=== PATIENT | female | born 1935 | race Caucasian/White ===

== ENCOUNTER 2017-05-27 10:12 | Emergency (ER) | payer MEDICARE, OTHER ==
[2017-05-27 10:32] VITALS: BP 108/52
[2017-05-27] MEDS ORDERED: Take Home: Ciprofloxacin 500 MG Tab, 2 Tab Pack PO ONE (11:55)
--- NOTE | 2017-05-27 12:46 | EDM.PDOC ---
ED HPI GENERAL MEDICAL PROBLEM - General Chief Complaint: Head Injury Stated Complaint: ER Time Seen by Provider: 05/27/17 10:32 Source of Information: Reports: Patient History Limitations: Reports: No Limitations - History of Present Illness INITIAL COMMENTS - FREE TEXT/NARRATIVE: Pt. presents to ER post fall. She was walking into the elevator at [facility] and suffered a fall, striking her head and face. She denied any LOC and recalls the entire event. Denies any neck pain. She states that she did not experience any weakness, chest pain, or shortness of breath prior to or during the fall. Staff at [facility] states that the pt. has been somewhat more fatigued recently, and state that she has a history of frequent UTIs. Onset: Today Location: Reports: Head, Face - Related Data Allergies Allergy/AdvReac Type Severity Reaction Status Date / Time No Known Allergies Allergy Verified 05/27/17 10:32 Home Meds: Home Meds Calcium Carb & Citrate/Vit D3 [Citracal + D ER] 2 tab PO DAILY 06/10/15 [History ] Cyanocobalamin (Vitamin B-12) [Vitamin B-12] 1 tab PO DAILY 06/10/15 [History] Docusate Sodium [Colace] 2 cap PO BEDTIME 06/10/15 [History] Donepezil HCl [Aricept] 10 mg PO DAILY 06/10/15 [History] Dorzolamide/Timolol [Cosopt 2%-0.5% Ophth Soln] 1 drop EYEBOTH BID 06/10/15 [ History] Lovastatin [Mevacor] 1 tab PO DAILY 06/10/15 [History] Sertraline HCl [Zoloft] 1 tab PO DAILY 06/10/15 [History] traZODone 0.5 - 1 tab PO BEDTIME PRN 06/10/15 [History] Acetaminophen [Tylenol] 650 mg PO Q4HR PRN 05/27/17 [History] Acyclovir [Zovirax] 400 mg PO BID 05/27/17 [History] Brimonidine [Alphagan P 0.15% Ophth Soln] 1 drop EYEBOTH BID 05/27/17 [History] Latanoprost [Latanoprost] 1 drop EYEBOTH BEDTIME 05/27/17 [History] Omeprazole [Omeprazole] 20 mg PO DAILY 05/27/17 [History] Sulfamethoxazole/Trimethoprim [Bactrim Ds Tablet] 1 tab PO MOWEFR 05/27/17 [ History] Past Medical History HEENT History: Reports: Cataract, Glaucoma Cardiovascular History: Reports: High Cholesterol, Other (See Below) Other Cardiovascular History: paroxysmal vent tachy Respiratory History: Reports: PE Gastrointestinal History: Reports: Chronic Constipation, Colon Polyp Musculoskeletal History: Reports: None Neurological History: Reports: Other (See Below) Other Neuro History: cognitive impairment Psychiatric History: Reports: Depression, Other (See Below) Other Psychiatric History: insomnia Endocrine/Metabolic History: Reports: Osteopenia Hematologic History: Reports: None Immunologic History: Reports: None Oncologic (Cancer) History: Reports: Non-Hodgkin's Lymphoma Dermatologic History: Reports: Other (See Below) Other Dermatologic History: scalp cysts - Past Surgical History Female Surgical History: Reports: Hysterectomy Social & Family History - Tobacco Use Smoking Status *Q: Never Smoker - Alcohol Use Days Per Week of Alcohol Use: 0 - Recreational Drug Use Recreational Drug Use: No Drug Use in Last 12 Months: No ED ROS GENERAL - Review of Systems Review Of Systems: See Below Constitutional: Reports: No Symptoms HEENT: Reports: Other (head/facial contusions/abrasions) Respiratory: Reports: No Symptoms Cardiovascular: Reports: No Symptoms Endocrine: Reports: No Symptoms GI/Abdominal: Reports: No Symptoms : Reports: No Symptoms Musculoskeletal: Reports: No Symptoms Skin: Reports: No Symptoms Neurological: Reports: Headache Psychiatric: Reports: No Symptoms Hematologic/Lymphatic: Reports: No Symptoms Immunologic: Reports: No Symptoms ED EXAM, HEAD INJURY - Physical Exam Exam: See Below Exam Limited By: No Limitations General Appearance: Alert, WD/WN, No Apparent Distress Head: Scalp Abrasions, Facial Abrasions, Facial Ecchymosis Eyes: Bilateral Eye: EOMI, Normal Fundi, Normal Inspection, PERRL Ears: Normal External Exam, Normal Canal, Hearing Grossly Normal, Normal TMs Nose: Normal Inspection, Normal Mucousa, No Blood Throat/Mouth: Normal Inspection, Normal Lips, Normal Teeth, Normal Gums, Normal Oropharynx, Normal Voice, No Airway Compromise Neck: Non-Tender, Full Range of Motion, Normal Alignment, Normal Inspection Respiratory: No Respiratory Distress, Lungs Clear, Normal Breath Sounds, No Accessory Muscle Use, Chest Non-Tender Cardiovascular: Normal Peripheral Pulses, Regular Rate, Rhythm, No Edema, No Gallop, No JVD, No Murmur, No Rub GI/Abdominal Exam: Normal Bowel Sounds, Soft, Non-Tender, No Organomegaly, No Distention, No Abnormal Bruit, No Mass (Female) Exam: Deferred Rectal (Female) Exam: Deferred Back Exam: Full Range of Motion, Normal Inspection, NT Extremities: Normal Inspection, Normal Range of Motion, Non-Tender, No Pedal Edema, Normal Capillary Refill Neurologic: mason liner II-XII nml As Tested, No Motor/Sensory Deficits, Alert, Normal Mood/Affect, Oriented x 3 DTR: 2+: Bicep (R), Bicep (L), Patella (R), Patella (L) Skin: Normal Color, Warm/Dry - [place] Coma Score Best Eye Response (Ramona): (4) Open Spontaneously Best Verbal Response ([place]): (5) Oriented Best Motor Response ([place]): (6) Obeys Commands [place] Total: 15 Course - Vital Signs Text/Narrative:: CT brain and facial bones negative for acute pathology Last Recorded V/S: Last Vital Signs Temp 35.9 C 05/27/17 10:27 Pulse 62 05/27/17 10:27 Resp 14 05/27/17 10:27 BP 108/52 L 05/27/17 10:27 Pulse Ox 94 L 05/27/17 10:27 - Orders/Labs/Meds Orders: Active Orders 24 hr Category Date Time Status Head wo Cont [CT] Stat Exams 05/27/17 10:37 Taken Max Facial Sinus wo Cont [CT] Stat Exams 05/27/17 10:38 Taken Labs: Laboratory Tests 05/27/17 Range/Units 11:29 Urine Color Yellow (YELLOW) Urine Appearance Slightly cloudy H (CLEAR) Urine pH 7.0 (5.0-8.0) Ur Specific [place] 1.020 Urine Protein Trace H (NEGATIVE) mg/dL Urine Glucose (UA) Negative (NEGATIVE) mg/dL Urine Ketones Negative (NEGATIVE) mg/dL Urine Occult Blood Negative (NEGATIVE) Urine Nitrite Negative (NEGATIVE) Urine Bilirubin Negative (NEGATIVE) Urine Urobilinogen 0.2 (0.2) EU/dL Ur Leukocyte Esterase Moderate H (NEGATIVE) Urine RBC 0-5 (NOT SEEN) /HPF Urine WBC 5-10 H (NOT SEEN) /HPF Ur Squamous Epith Cells Many H (NEGATIVE) /HPF Urine Bacteria Rare (NEGATIVE) /HPF Urine Mucus Rare H (NEGATIVE) /LPF Meds: Medications Discontinued Medications Generic Name Dose Route Start Last Admin Trade Name Alma Delia PRN Reason Stop Dose Admin Ciprofloxacin 1 packet 05/27/17 11:55 05/27/17 12:02 Take Home: Ciprofloxacin 500 Mg, 2 Tab Pack PO 05/27/17 11:56 1 packet ONETIME ONE Administration Departure - Departure Time of Disposition: 12:43 Disposition: Home, Self-Care 01 Condition: Good Clinical Impression: Concussion injury of brain, Abrasion head - Discharge Information Instructions: Head Injury, Adult, Urinary Tract Infection, Adult, Ciprofloxacin tablets Referrals: PCP,None [Primary Care Provider] - Forms: ED Department Discharge Additional Instructions: Cipro 500mg twice daily for 7 days. Follow-up in clinic in 7-10 days. Keep abrasion open to air once it is no longer actively bleeding. - My Orders Last 24 Hours: My Active Orders 05/27/17 10:37 Head wo Cont [CT] Stat 05/27/17 10:38 Max Facial Sinus wo Cont [CT] Stat - Assessment/Plan Last 24 Hours: My Active Orders 05/27/17 10:37 Head wo Cont [CT] Stat 05/27/17 10:38 Max Facial Sinus wo Cont [CT] Stat
== END 2017-05-27 12:43 | disposition home or self-care (01) ==
LOC: VM.ED 10:12
DX: S06.0X0A Concussion without loss of consciousness, initial encounter (principal); E78.00 Pure hypercholesterolemia, unspecified; F32.9 Major depressive disorder, single episode, unspecified; Z79.899 Other long term (current) drug therapy; W01.198A Fall on same level from slipping, tripping and stumbling with subsequent striking against other object, initial encounter
CPT/HCPCS: 70450; 70486; 81001; 99284; A9270